=== PATIENT | female | born 1940 | race Caucasian/White ===

== ENCOUNTER 2017-06-25 09:22 | Emergency (ER) | payer MEDICARE, BC ==
[2017-06-25 09:26] VITALS: BP 123/64; PULSE 68; RESP 14; TEMP 97.7; O2SAT 98
--- NOTE | 2017-06-25 09:36 | PD ---
HPI Chief Complaint: Fall Time Seen by Provider: 09:35 Travel History International Travel<30 days: No Contact w/Intl Traveler<30days: No Traveled to known affect area: No History of Present Illness HPI 77-year-old female with history of dementia and Parkinson's is brought into the emergency department by her following a fall. This was an unwitnessed fall. The patient has been states that he was downstairs when he heard a commotion. He came up and found her on the floor. He is uncertain if she lost consciousness. He states initially she was reporting some left arm pain that this is seen to resolve. He states she is currently at her baseline. [facility] Past Medical History Cardiovascular Problems: Yes Neurologic: Yes Parkinson's Disease: Yes Social History Alcohol Use: No Tobacco Use: No Substance Use: No Allergies-Medications (Allergen,Severity, Reaction): Coded Allergies: Iodinated Contrast- Oral and IV Dye (Verified Allergy, Unknown, 06/25/17) Reported Meds & Prescriptions Reported Meds & Active Scripts Active Reported Advil Liqui-Gels (Ibuprofen) 200 Mg Capsule 200 Mg .XX DAILY Zofran (Ondansetron HCl) 4 Mg Tab 4 Mg PO Q12HR PRN Biotin 5 Mg Cap 5,000 Mcg PO DAILY Calcium 600 with Vitamin D (Calcium Carbonate-Cholecalciferol) 600-400 mg-Unit Tab 1 Tab PO DAILY Vitamin D3 (Cholecalciferol) 2,000 Unit Cap 2,000 Units PO DAILY Aspirin 81 Mg Chew 81 Mg CHEW DAILY Benefiber (Wheat Dextrin) 3 Gram/3.8 Gram Powder 10 Ml PO DAILY Xanax (Alprazolam) 0.25 Mg Tab 0.25 Mg PO BID PRN Paxil (Paroxetine HCl) 30 Mg Tab 30 Mg PO DAILY Prilosec (Omeprazole Magnesium) 20 Mg Tab 20 Mg PO DAILY Sinemet (Carbidopa-Levodopa) 25-100 Mg Tab 1.5 Tab PO Q8HR Namenda (Memantine) 10 Mg Tab 10 Mg PO BID Donepezil 10 Mg Tab 10 Mg PO HS Lisinopril 5 Mg Tab 5 Mg PO HS Review of Systems Except as stated in HPI: all other systems reviewed are Neg Physical Exam Narrative GENERAL: Well-nourished elderly female patient, lying in bed, appears in no acute distress. SKIN: Focused skin assessment warm/dry. HEAD: Atraumatic. Normocephalic. EYES: Pupils equal and round. No scleral icterus. No injection or drainage. ENT: No nasal bleeding or discharge. Mucous membranes pink and moist. NECK: Trachea midline. No JVD. CARDIOVASCULAR: Regular rate and rhythm. RESPIRATORY: No accessory muscle use. Clear to auscultation. Breath sounds equal bilaterally. GASTROINTESTINAL: Abdomen soft, non-tender, nondistended. Hepatic and splenic margins not palpable. MUSCULOSKELETAL: No obvious deformities. No clubbing. No cyanosis. No edema. No obvious deformities. No tenderness elicited palpation over the extremities. Patient moves all extremity is without difficulty. NEUROLOGICAL: Awake awake. Unable to assess cranial nerves. Patient moves all extremity is. Data Data Last Documented VS Vital Signs Date Time Temp Pulse Resp B/P (MAP) Pulse Ox O2 Delivery O2 Flow Rate FiO2 06/25/17 10:40 06/25/17 09:57 64 16 100 Room Air 06/25/17 09:[address] Brain W/O Iv Contrast(Rout) (06/25/17 ) Ct Cerv Spine W/O Contrast (06/25/17 ) Ed Discharge Order (06/25/17 10:30) MDM Medical Decision Making Medical Screen Exam Complete: Yes Emergency Medical Condition: Yes Medical Record Reviewed: Yes Differential Diagnosis Minor head injury versus intracranial hemorrhage versus fracture versus contusion Narrative Course 77-year-old female presents to emergency department for evaluation. Patient appears nontoxic. She is pleasant but doesn't respond much verbally or offer any helpful information. Her states this is her baseline. CT imaging of the brain and cervical spine are completed without acute abnormality. I have discussed the patient my attending physician. She'll be discharged home at this time. Last Impressions Head CT 06/25/17 0000 Signed Impressions: Service Date/Time: Sunday, June 25, 2017 09:55 - CONCLUSION: No acute disease. Kevin Carballo MD Cervical Spine CT 06/25/17 0000 Signed Impressions: Service Date/Time: Sunday, June 25, 2017 09:55 - CONCLUSION: 1. Degenerative changes. 2. No fracture. Kvein Carballo MD Diagnosis Primary Impression: Minor head injury Qualified Codes: S00.90XA - Unspecified superficial injury of unspecified part of head, initial encounter Referrals: Primary Care Physician Patient Instructions: General Instructions, Head Injury (ED) Additional Instructions: Follow up with a primary care provider Return to ED with acute worsening of symptoms Med/Other Pt SpecificInfo: No Change to Meds Disposition: 01 DISCHARGE HOME Condition: Stable Mariaa Mayes Jun 25, 2017 09:36
[2017-06-25 09:45] VITALS: BP 122/73; PULSE 64; RESP 16; O2SAT 100
[2017-06-25] MEDS ORDERED: VITA2000 PO (09:54)
[2017-06-25] MEDS ORDERED: ALPR.25 PO (09:54)
[2017-06-25] MEDS ORDERED: LISI-519 PO (09:54)
[2017-06-25] MEDS ORDERED: BIOTCAP PO (09:54)
[2017-06-25] MEDS ORDERED: PAXI30TA7 PO (09:54)
[2017-06-25] MEDS ORDERED: ASPI-516 CHEW (09:54)
[2017-06-25] MEDS ORDERED: NAME10TA PO (09:54)
[2017-06-25] MEDS ORDERED: PRIL20TA2 PO (09:54)
[2017-06-25] MEDS ORDERED: IBUP200C17 (09:54)
[2017-06-25] MEDS ORDERED: DONE10TA7 PO (09:54)
[2017-06-25] MEDS ORDERED: ZOFR4TAB PO (09:54)
[2017-06-25] MEDS ORDERED: CALC1TAB87 PO (09:54)
[2017-06-25] MEDS ORDERED: SINE25TA PO (09:54)
[2017-06-25] MEDS ORDERED: WHEA1POW9 PO (09:54)
--- NOTE | 2017-06-25 10:18 | RADRPT ---
EXAM DATE/TIME: 06/25/2017 09:55 [facility] COMPARISON: No previous studies available for comparison. INDICATIONS : Fall today onto head. RADIATION DOSE: 56.77 CTDIvol (mGy) MEDICAL HISTORY : Dementia. SURGICAL HISTORY : None. ENCOUNTER: Initial ACUITY: 1 day PAIN SCALE: Non-responsive LOCATION: Bilateral head TECHNIQUE: Multiple contiguous axial images were obtained of the head. Using automated exposure control and adj ustment of the mA and/or kV according to patient size, radiation dose was kept as low as reasonably a chievable to obtain optimal diagnostic quality images. DICOM format image data is available electro nically for review and comparison. FINDINGS: CEREBRUM: The ventricles are normal for age. No evidence of midline shift, mass lesion, hemorrhage or acute in farction. No extra-axial fluid collections are seen. POSTERIOR FOSSA: The cerebellum and brainstem are intact. The 4th ventricle is midline. The cerebellopontine angle i s unremarkable. EXTRACRANIAL: The visualized portion of the orbits is intact. SKULL: The calvaria is intact. No evidence of skull fracture. CONCLUSION: No acute disease. Kevin Carballo MD on June 25, 2017 at 10:13 Board Certified Radiologist. This report was verified electronically.
--- NOTE | 2017-06-25 10:25 | RADRPT ---
EXAM DATE/TIME: 06/25/2017 09:55 [facility] COMPARISON: No previous studies available for comparison. INDICATIONS : Fall today onto head. RADIATION DOSE: 23.67 CTDIvol (mGy) MEDICAL HISTORY : Dementia. SURGICAL HISTORY : None. ENCOUNTER: Initial ACUITY: 1 day PAIN SCALE: Non-responsive LOCATION: Bilateral neck TECHNIQUE: Volumetric scanning of the cervical spine was performed. Multiplanar reconstructions in the sagittal, coronal and oblique axial planes were performed. Using automated exposure control and adjustment o f the mA and/or kV according to patient size, radiation dose was kept as low as reasonably achievable to obtain optimal diagnostic quality images. DICOM format image data is available electronically f or review and comparison. FINDINGS: VERTEBRAE: Normal vertebral body height. Advanced multilevel degenerative changes. Minimal anterolisthesis C3 on 4. Minimal retrolisthesis C5 on 6. C2-C3: The bony spinal canal is normal in size. No evidence of disc bulge or herniation. The neural forami na are bilaterally patent. C3-C4: Minimal anterolisthesis. Posterior disc osteophyte complex and bilateral neural foraminal narrowing. No canal stenosis. C4-C5: Posterior disc osteophyte complex and bilateral neural foraminal narrowing. Mild canal stenosis. C5-C6: Posterior disc osteophyte complex and bilateral neural foraminal narrowing. Mild canal stenosis. . C6-C7: The bony spinal canal is normal in size. No evidence of disc bulge or herniation. The neural forami na are bilaterally patent. C7-T1: The bony spinal canal is normal in size. No evidence of disc bulge or herniation. The neural forami na are bilaterally patent. CONCLUSION: 1. Degenerative changes. 2. No fracture. Kevin Carballo MD on June 25, 2017 at 10:19 Board Certified Radiologist. This report was verified electronically.
== END 2017-06-25 10:40 | disposition home or self-care (01) ==
LOC: NEPD 09:22
DX: S09.90XA Unspecified injury of head, initial encounter (principal); W19.XXXA Unspecified fall, initial encounter; G20 Parkinson's disease; F02.80 Dementia in other diseases classified elsewhere, unspecified severity, without behavioral disturbance, psychotic disturbance, mood disturbance, and anxiety
CPT/HCPCS: 70450; 72125

== ENCOUNTER 2017-07-12 00:12 | Emergency (ER) | payer MEDICARE, BC ==
[~2017-07-12] VITALS: Ht 152.4 cm; Wt 45.5 kg
[~2017-07-12 00:12] MED LIST: ALPR.25 PO; ASPI-516 CHEW; BIOTCAP PO; CALC1TAB87 PO; DONE10TA7 PO; IBUP200C17; LISI-519 PO; NAME10TA PO; PAXI30TA7 PO; PRIL20TA2 PO; SINE25TA PO; VITA2000 PO; WHEA1POW9 PO; ZOFR4TAB PO
[2017-07-12 00:15] VITALS: BP 137/71; PULSE 70; RESP 20; TEMP 97.5; O2SAT 100
--- NOTE | 2017-07-12 01:13 | PD ---
HPI Chief Complaint: Fall Time Seen by Provider: 00:39 Travel History International Travel<30 days: No Contact w/Intl Traveler<30days: No Traveled to known affect area: No History of Present Illness HPI The patient is a 77-year-old female who presents to the emergency department after a fall at home. The patient lives with her , has a history of dementia with multiple falls in the last several years. The patient was sitting in a chair earlier today when she apparently tried to stand, get out of the chair, fell forward. The patient was noted to have a bruise to the lateral right orbit, superficial laceration to the right forearm, bruising to the right hand and left wrist. The patient was using her upper and lower extremities without difficulty, however, the was concerned about a possible injury to the face and/or brain. The patient does take aspirin daily, takes no other anticoagulants. The patient has a history of dementia and the history is obtained from the . Tetanus shot is up-to-date per the 's report. PFSH Past Medical History Anxiety: Yes Cardiovascular Problems: Yes (BBB) Dementia: Yes Diminished Hearing: No Neurologic: Yes Parkinson's Disease: Yes Tetanus Vaccination: < 5 Years Influenza Vaccination: Yes ?: Not Menopausal: Yes Tubal Ligation: Yes (1977) Past Surgical History Ear Surgery: Yes (RIGHT 1964) Tonsillectomy: Yes (1946) Other Surgery: Yes (RIGHT FRONTAL BELOW EYE (SINUS GROWTH REMOVAL) 03/31) Social History Alcohol Use: No Tobacco Use: No Substance Use: No Allergies-Medications (Allergen,Severity, Reaction): Coded Allergies: Iodinated Contrast- Oral and IV Dye (Verified Allergy, Unknown, 07/12/17) Reported Meds & Prescriptions Reported Meds & Active Scripts Active Reported Advil Liqui-Gels (Ibuprofen) 200 Mg Capsule 200 Mg .XX DAILY Zofran (Ondansetron HCl) 4 Mg Tab 4 Mg PO Q12HR PRN Biotin 5 Mg Cap 5,000 Mcg PO DAILY Calcium 600 with Vitamin D (Calcium Carbonate-Cholecalciferol) 600-400 mg-Unit Tab 1 Tab PO DAILY Vitamin D3 (Cholecalciferol) 2,000 Unit Cap 2,000 Units PO DAILY Aspirin 81 Mg Chew 81 Mg CHEW DAILY Benefiber (Wheat Dextrin) 3 Gram/3.8 Gram Powder 10 Ml PO DAILY Xanax (Alprazolam) 0.25 Mg Tab 0.25 Mg PO BID PRN Paxil (Paroxetine HCl) 30 Mg Tab 30 Mg PO DAILY Prilosec (Omeprazole Magnesium) 20 Mg Tab 20 Mg PO DAILY Sinemet (Carbidopa-Levodopa) 25-100 Mg Tab 1.5 Tab PO Q8HR Namenda (Memantine) 10 Mg Tab 10 Mg PO BID Donepezil 10 Mg Tab 10 Mg PO HS Lisinopril 5 Mg Tab 5 Mg PO HS Review of Systems ROS Limitations: Clinical Condition, Other: (History obtained from ) Except as stated in HPI: all other systems reviewed are Neg HENT: Positive: Other (Injury to the head and right lateral orbit) Cardiovascular: No: Chest Pain or Discomfort Respiratory: No: Shortness of Breath Gastrointestinal: No: Nausea, Vomiting Musculoskeletal: Positive: Edema Neurologic: Positive: Other (History of dementia) Physical Exam Narrative GENERAL: Awake, alert, pleasant 77-year-old female who appears her stated age and is in no acute respiratory distress. Follows simple commands but does not answer questions. SKIN: Superficial laceration to the right forearm, no active bleeding. Ecchymosis noted to the right hand and left wrist. Ecchymosis noted to the right lateral orbit. HEAD: Ecchymosis noted to the right lateral orbit. EYES: Pupils equal and round. Pupils are 2 mm bilaterally and reactive. EOMs appear intact. ENT: No nasal bleeding or discharge. Mucous membranes pink and moist. NECK: Trachea midline. No JVD. CARDIOVASCULAR: Regular rate and rhythm. No murmur appreciated. RESPIRATORY: No accessory muscle use. Clear to auscultation. Breath sounds equal bilaterally. GASTROINTESTINAL: Abdomen soft, non-tender, nondistended. MUSCULOSKELETAL: Ecchymosis noted over the posterior aspect of the right hand over the distal third, fourth, fifth metacarpal. Patient has full range of motion and no tenderness. Ecchymosis noted over the extensor surface of the left wrist, but patient is able to fully flex and extend the left wrist as well as supinate and pronate. Full range of motion with the hips and knees bilaterally. NEUROLOGICAL: Awake and alert. No obvious cranial nerve deficits. Motor grossly within normal limits. Follow simple commands. Responds to name, but cannot tell me the month, year, president of [facility]. Back: Kyphosis and scoliosis noted to the thoracic and lumbar spine, but no tenderness upon palpation. PSYCHIATRIC: Appropriate mood and affect; insight and judgment normal. Data Data Last Documented VS Vital Signs Date Time Temp Pulse Resp B/P (MAP) Pulse Ox O2 Delivery O2 Flow Rate FiO2 07/12/17 00:57 Room Air 07/12/17 00:15 97.5 70 20 137/71 (93) [address] Brain W/O Iv Contrast(Rout) (07/12/17 00:59) Ct Cerv Spine W/O Contrast (07/12/17 00:59) Ct Facial Bones W/O Iv Cont (07/12/17 ) MDM Medical Decision Making Medical Screen Exam Complete: Yes Emergency Medical Condition: Yes Medical Record Reviewed: Yes Interpretation(s) CT of the head reveals negative trauma CT CT of the cervical spine reveals negative trauma CT CT of the facial bones reveals negative trauma study with no evidence of facial fracture. Differential Diagnosis Differential diagnosis includes closed head injury, intracranial hemorrhage, orbital wall fracture, cervical fracture, abrasion, laceration, contusion. Narrative Course CT of the brain, cervical spine, and facial bones was obtained. The patient declined pain medication. The laceration was evaluated by the physician culinary assistant, Steri-Strips were placed. CT of the brain, cervical spine, facial bones is negative. The patient be discharged home with her . They will be provided a copy of the CT results. Wound care instructions were given. Diagnosis Primary Impression: Closed head injury Qualified Codes: S09.90XA - Unspecified injury of head, initial encounter Additional Impressions: Facial contusion Qualified Codes: S00.83XA - Contusion of other part of head, initial encounter Skin tear of right upper extremity Patient Instructions: General Instructions Additional Instructions: Please provide the family a copy of the CT results at discharge. Wound care instructions. Follow-up with your primary physician. Return if symptoms worsen or progress. Med/Other Pt SpecificInfo: No Change to Meds Disposition: 01 DISCHARGE HOME Condition: Stable Jay Carpio MD Jul 12, 2017 01:13
--- NOTE | 2017-07-12 01:29 | RADRPT ---
EXAM DATE/TIME: 07/12/2017 01:11 [facility] COMPARISON: No previous studies available for comparison. INDICATIONS : Trauma; fall. RADIATION DOSE: 26.35 CTDIvol (mGy) MEDICAL HISTORY : Parkinson's. Dementia. Cardiovascular disease SURGICAL HISTORY : None. ENCOUNTER: Initial ACUITY: 1 day PAIN SCORE: 5/10 LOCATION: Bilateral facial TECHNIQUE: Volumetric scanning of the facial bones was performed. Using automated exposure control and adjustme nt of the mA and/or kV according to patient size, radiation dose was kept as low as reasonably achiev able to obtain optimal diagnostic quality images. DICOM format image data is available electronicSquareKey y for review and comparison. FINDINGS: ORBITS: The orbital and infraorbital osseous structures are intact. The retroconal structures have a normal configuration. No radiopaque foreign bodies are seen. NASAL BONE: The nasal bone and maxillary spine are intact ZYGOMATIC ARCHES: Symmetric without evidence of fracture. SINUSES: The maxillary, ethmoid and frontal sinuses are intact. No air-fluid levels seen. NASAL CAVITY: The nasal septum is intact and midline. The lacrimal ducts are intact. SOFT TISSUES: No radiopaque foreign bodies seen. No soft-tissue swelling is seen. INTRACRANIAL: No intracranial air seen. CRIBIFORM PLATE: Grossly intact. CONCLUSION: Negative trauma study with no evidence of facial fracture. Se Marrufo MD on July 12, 2017 at 1:22 Board Certified Radiologist. This report was verified electronically.
--- NOTE | 2017-07-12 01:35 | RADRPT ---
EXAM DATE/TIME: 07/12/2017 01:10 [facility] COMPARISON: CT BRAIN W/O CONTRAST, June 25, 2017, 9:55. INDICATIONS : Trauma; fall. RADIATION DOSE: 56.35 CTDIvol (mGy) MEDICAL HISTORY : Parkinson's. Cardiovascular disease Dementia. SURGICAL HISTORY : None. ENCOUNTER: Initial ACUITY: 1 day PAIN SCALE: 5/10 LOCATION: Bilateral cranial TECHNIQUE: Multiple contiguous axial images were obtained of the head. Using automated exposure control and adj ustment of the mA and/or kV according to patient size, radiation dose was kept as low as reasonably a chievable to obtain optimal diagnostic quality images. DICOM format image data is available electro nically for review and comparison. FINDINGS: CEREBRUM: The ventricles are normal for age with diffuse moderate atrophic change with sulcal and ventricular p rominence. No evidence of midline shift, mass lesion, hemorrhage or acute infarction. No extra-axial fluid collections are seen. POSTERIOR FOSSA: The cerebellum and brainstem are intact. The 4th ventricle is midline. The cerebellopontine angle i s unremarkable. EXTRACRANIAL: The visualized portion of the orbits is intact. SKULL: The calvaria is intact. No evidence of skull fracture. CONCLUSION: Negative trauma CT Se Marrufo MD on July 12, 2017 at 1:28 Board Certified Radiologist. This report was verified electronically.
--- NOTE | 2017-07-12 01:46 | RADRPT ---
EXAM DATE/TIME: 07/12/2017 01:11 [facility] COMPARISON: CT CERVICAL SPINE W/O CONTRAST, June 25, 2017, 9:55. INDICATIONS : Trauma; fall. RADIATION DOSE: 21.17 CTDIvol (mGy) MEDICAL HISTORY : Parkinson's. Dementia. Cardiovascular disease SURGICAL HISTORY : None. ENCOUNTER: Initial ACUITY: 1 day PAIN SCALE: 5/10 LOCATION: Bilateral neck TECHNIQUE: Volumetric scanning of the cervical spine was performed. Multiplanar reconstructions in the sagittal, coronal and oblique axial planes were performed. Using automated exposure control and adjustment o f the mA and/or kV according to patient size, radiation dose was kept as low as reasonably achievable to obtain optimal diagnostic quality images. DICOM format image data is available electronically f or review and comparison. FINDINGS: The sagittal reconstructions demonstrate normal alignment and normal prevertebral soft tissues. The d ens is intact and there is a normal atlantoaxial relationship. Degenerative changes are again noted a t the C3-4 through C6-7 level with disc space narrowing and hypertrophic change. There is mild osteop enia. The axial images demonstrate that the vertebral bodies and posterior elements are intact. The soft ti ssues are within normal limits. There is no evidence of acute fracture or malalignment. CONCLUSION: Negative trauma CT. Se Marrufo MD on July 12, 2017 at 1:34 Board Certified Radiologist. This report was verified electronically.
== END 2017-07-12 03:14 | disposition home or self-care (01) ==
LOC: NEPC 00:12
DX: S00.83XA Contusion of other part of head, initial encounter (principal); S51.811A Laceration without foreign body of right forearm, initial encounter; F03.90 Unspecified dementia, unspecified severity, without behavioral disturbance, psychotic disturbance, mood disturbance, and anxiety; G20 Parkinson's disease; W07.XXXA Fall from chair, initial encounter; Y93.89 Activity, other specified; Y92.009 Unspecified place in unspecified non-institutional (private) residence as the place of occurrence of the external cause
CPT/HCPCS: 70450; 70486; 72125; 99283